=== PATIENT | female | born 1945 | race Caucasian/White ===

== ENCOUNTER 2017-04-26 13:03 | Inpatient (IN) | payer OTHER ==
[~2017-04-26] VITALS: Ht 154.9 cm; Wt 43.6 kg
[~2017-04-26 13:03] MED LIST: AUGMENTIN875 MG PO; BUPROPION HCL150 M2 PO; CALCIUM 600 +1 EAC2 PO; CALCIUM 600 +1 EAC7 PO; CITALOPRAM HBR10 MG PO; CITRACAL + D C1 EACH PO; DAILY VITAMIN1 EAC4 PO; DAILY VITE1 EAC1 PO; HYDROCODON-ACE1 EAC7 PO; LOSARTAN POTASS50 MG PO; MISOPROSTOL200 MCG PO; ONE DAILY FOR1 EAC1 PO; OXYCODONE HCL5 MG PO; OXYCONTIN10 MG PO; TOPAMAX25 MG PO; TOPAMAX50 MG PO; TOPIRAMATE50 MG PO; TYLENOL EXTRA500 MG PO; WELLBUTRIN SR150 MG PO
[2017-04-26 13:26] LABS: HEMATOCRIT 40.6 % (36.0-46.0); HEMOGLOBIN 14.3 G/DL (11.9-15.5); MCH 33.6 PG (29.0-34.0); MCHC 35.2 G/DL (30.0-36.0); MCV 95.3 FL (83-99); PLATELET COUNT 231 K/uL (156-360); RBC DIS.WIDTH-CV 11.6 % (11.8-14.6); RBC DIS.WIDTH-SD 40.5 % (39-53); RED BLOOD COUNT 4.26 M/uL (3.80-5.20); WHITE BLOOD COUNT 13.4 K/uL (4.1-10.2)
[2017-04-26 13:34] LABS: ALBUMIN 4.6 g/dL (3.2-4.8)
[2017-04-26 13:35] LABS: CHLORIDE 104 mEq/L (99-109); POTASSIUM 4.2 mEq/L (3.7-5.4); SODIUM 139 mEq/L (136-147)
[2017-04-26 13:37] LABS: GLUCOSE 124 mg/dL (70-99); TOTAL PROTEIN 7.5 g/dL (6.4-8.3)
[2017-04-26 13:39] LABS: TOTAL BILIRUBIN 0.7 mg/dL (0.0-1.0)
[2017-04-26 13:40] LABS: ALKALINE PHOSPHATASE 53 IU/L (3-129)
[2017-04-26 13:41] LABS: CREATININE 1.2 mg/dL (0.6-1.3); GFR ESTIMATE (CALCULATED) 47 mL/min/
[2017-04-26 13:42] LABS: AST (GOT) 23 IU/L (2-34); UREA NITROGEN (BUN) 17 mg/dL (9-23)
[2017-04-26 13:44] LABS: ALT (GPT) 13 IU/L (3-49)
[2017-04-26] MEDS ORDERED: BUPROPION HCL150 M2 PO (15:17)
[2017-04-26] MEDS ORDERED: TOPIRAMATE25 MG PO (15:20)
[2017-04-26 16:58] LABS: APPEARANCE CLEAR ((CLEAR)); BILIRUBIN NEGATIVE; BLOOD NEGATIVE; COLOR YELLOW ((YELLOW)); GLUCOSE (STRIP) NEGATIVE; KETONES 5; LEUKOCYTES NEGATIVE; NITRITE NEGATIVE; PROTEIN (STRIP) NEGATIVE; SPECIFIC GRAVITY 1.056 (1.000-1.030); UCUL ADDED? NO; UROBILINOGEN 0.2 MG/DL (0.2-1.0)
[2017-04-26 18:24] LABS: CARCINOEMBR.ANTIGEN 6.8 NG/ML
[2017-04-27 07:20] LABS: HEMATOCRIT 36.5 % (36.0-46.0); HEMOGLOBIN 12.5 G/DL (11.9-15.5); MCH 33.5 PG (29.0-34.0); MCHC 34.2 G/DL (30.0-36.0); MCV 97.9 FL (83-99); PLATELET COUNT 183 K/uL (156-360); RBC DIS.WIDTH-SD 43.6 % (39-53); RED BLOOD COUNT 3.73 M/uL (3.80-5.20); WHITE BLOOD COUNT 8.3 K/uL (4.1-10.2)
[2017-04-27 08:42] LABS: CHLORIDE 112 MEQ/L (99-109); CREATININE 0.9 MG/DL (0.6-1.3); GFR ESTIMATE (CALCULATED) > 59 mL/min/; GLUCOSE 106 mg/dL (70-99); POTASSIUM 3.9 MEQ/L (3.7-5.4); SODIUM 142 MEQ/L (136-147); UREA NITROGEN (BUN) 17 mg/dL (9-23)
[2017-04-27 13:28] VITALS: BP 137/61
[2017-04-27 15:05] VITALS: BP 120/56
[2017-04-27 22:56] VITALS: BP 138/63
[2017-04-28 06:17] LABS: HEMATOCRIT 35.7 % (36.0-46.0); HEMOGLOBIN 11.8 G/DL (11.9-15.5); MCH 32.1 PG (29.0-34.0); MCHC 33.1 G/DL (30.0-36.0); PLATELET COUNT 180 K/uL (156-360); RBC DIS.WIDTH-CV 11.9 % (11.8-14.6); RBC DIS.WIDTH-SD 43.2 % (39-53); RED BLOOD COUNT 3.68 M/uL (3.80-5.20); WHITE BLOOD COUNT 5.3 K/uL (4.1-10.2)
[2017-04-28 06:36] LABS: CHLORIDE 114 MEQ/L (99-109); CREATININE 0.8 MG/DL (0.6-1.3); GFR ESTIMATE (CALCULATED) > 59 mL/min/; GLUCOSE 108 mg/dL (70-99); POTASSIUM 4.2 MEQ/L (3.7-5.4); SODIUM 143 MEQ/L (136-147); UREA NITROGEN (BUN) 7 mg/dL (9-23)
[2017-04-28 09:05] VITALS: BP 137/65
== END 2017-04-28 14:10 | disposition home or self-care (01) | DRG 389 ==
LOC: EME 13:03 → 5EAST 17:30 → EDOF 17:30 → ENRESERV 17:31 → 5EAST 04-27 13:20 → ENPENDDIS 04-28 → 5EAST 04-28 14:10
PROVIDERS: Nurse Practitioner Family; Physician Assistant Surgical; Surgery
DX: K56.51 Intestinal adhesions [bands], with partial obstruction (principal); Z85.828 Personal history of other malignant neoplasm of skin; I10 Essential (primary) hypertension; K59.09 Other constipation; Z87.891 Personal history of nicotine dependence; Z90.710 Acquired absence of both cervix and uterus; Z87.442 Personal history of urinary calculi; E78.5 Hyperlipidemia, unspecified; Z85.038 Personal history of other malignant neoplasm of large intestine; Z68.1 Body mass index [BMI] 19.9 or less, adult; K31.84 Gastroparesis
CPT/HCPCS: 71045; 74019; 74177; 80048; 80053; 81003; 82378; 85027; 93005; J1885; J2270; J2405; J7030

== ENCOUNTER 2017-07-25 08:31 | Emergency (ER) | payer OTHER ==
[~2017-07-25] VITALS: Ht 154.9 cm; Wt 41.6 kg
[~2017-07-25 08:31] MED LIST changes: +TOPIRAMATE25 MG PO
[2017-07-25 09:02] LABS: HEMATOCRIT 43.4 % (36.0-46.0); HEMOGLOBIN 15.3 G/DL (11.9-15.5); MCH 33.6 PG (29.0-34.0); MCHC 35.3 G/DL (30.0-36.0); MCV 95.4 FL (83-99); PLATELET COUNT 256 K/uL (156-360); RBC DIS.WIDTH-CV 11.9 % (11.8-14.6); RBC DIS.WIDTH-SD 41.1 % (39-53); RED BLOOD COUNT 4.55 M/uL (3.80-5.20); WHITE BLOOD COUNT 15.8 K/uL (4.1-10.2)
[2017-07-25 09:11] LABS: ALBUMIN 4.9 g/dL (3.2-4.8); CHLORIDE 105 mEq/L (99-109); POTASSIUM 3.9 mEq/L (3.7-5.4); SODIUM 142 mEq/L (136-147)
[2017-07-25 09:13] LABS: GLUCOSE 156 mg/dL (70-99); TOTAL PROTEIN 7.8 g/dL (6.4-8.3)
[2017-07-25 09:15] LABS: TOTAL BILIRUBIN 0.7 mg/dL (0.0-1.0)
[2017-07-25 09:17] LABS: ALKALINE PHOSPHATASE 60 IU/L (3-129); CREATININE 1.3 mg/dL (0.6-1.3); GFR ESTIMATE (CALCULATED) 43 mL/min/
[2017-07-25 09:18] LABS: UREA NITROGEN (BUN) 21 mg/dL (9-23)
[2017-07-25 09:19] LABS: AST (GOT) 26 IU/L (2-34)
[2017-07-25 09:20] LABS: ALT (GPT) 18 IU/L (3-49)
[2017-07-25 09:50] LABS: MAGNESIUM 2.1 mg/dL (1.3-2.7)
[2017-07-25 10:03] LABS: TROP-I INTERPRETATION NEGATIVE; TROPONIN-I < 0.01 ng/mL (0.0-0.30)
[2017-07-25 10:09] LABS: APPEARANCE CLEAR ((CLEAR)); BILIRUBIN NEGATIVE; BLOOD NEGATIVE; COLOR AMBER ((YELLOW)); GLUCOSE (STRIP) NEGATIVE; KETONES 5; LEUKOCYTES NEGATIVE; NITRITE NEGATIVE; PROTEIN (STRIP) 30; SPECIFIC GRAVITY 1.031 (1.000-1.030); UCUL ADDED? NO
[2017-07-25] MEDS ORDERED: ZOFRAN ODT4 MG PO (11:31)
[2017-07-25 11:40] VITALS: BP 121/85
== END 2017-07-25 11:41 | disposition home or self-care (01) ==
LOC: EME 08:31
DX: K52.9 Noninfective gastroenteritis and colitis, unspecified (principal); I10 Essential (primary) hypertension; F32.9 Major depressive disorder, single episode, unspecified; G43.909 Migraine, unspecified, not intractable, without status migrainosus; Z85.038 Personal history of other malignant neoplasm of large intestine; Z90.49 Acquired absence of other specified parts of digestive tract; Z87.442 Personal history of urinary calculi; Z87.891 Personal history of nicotine dependence; Z88.5 Allergy status to narcotic agent; Z88.2 Allergy status to sulfonamides
CPT/HCPCS: 74022; 80053; 81003; 83735; 84484; 85027; 93005; 99281; 99284